=== PATIENT | female | born 1975 | race Caucasian/White ===

== ENCOUNTER 2016-06-25 14:52 | Outpatient (CLI) | payer OTHER ==
--- NOTE | 2016-06-25 15:56 | DIAGNOSTIC IMAGING REPORT ---
PROCEDURE: US COMPLETE PELVIC W/TRANSVAG INDICATION: PELVIC PAIN TECHNIQUE: Transabdominal and endovaginal scott scale and color Doppler sonographic images of the female pelvis were obtained. COMPARISON: None. FINDINGS: TRANSABDOMINAL SCANS: Previous hysterectomy. Kidneys are normal. TRANSVAGINAL SCANS: Right ovary is normal measuring 3.1 x 2.2 x 2.7 cm The left ovary is normal measuring 3.6 x 2.0 x 2.2 cm IMPRESSION: 1. Normal ovaries and kidneys.
== END 2016-06-25 23:00 | disposition home or self-care (01) ==
LOC: US SRH 14:52
DX: R10.2 Pelvic and perineal pain (principal)